=== PATIENT | female | born 1970 | race Caucasian/White ===

== ENCOUNTER 2019-07-15 16:57 | Emergency (ER) | payer OTHER, SELFPAY ==
[2019-07-15 17:10] VITALS: BP 125/72; PULSE 65; RESP 16; TEMP 37.2; O2SAT 100
--- NOTE | 2019-07-15 17:20 | ED.GENADULT ---
HPI - General Adult General Chief complaint: Urogenital-Female Stated complaint: Possible Bladder Infection Time Seen by Provider: 07/15/19 17:20 Source: patient and RN notes reviewed Mode of arrival: ambulatory Limitations: no limitations History of Present Illness HPI narrative: 49-year-old female presents with urinary complaints for the past 7 days. Dysuria consist of foul odor, burning, frequency, and urgency.? No treatment.? Denies fever or chills. No significant pelvic pain. No vaginal discharge.? No concerns for STDs. Exacerbating factors urinating.? Denies hematuria or vaginal bleeding. Denies being , LMP 06/22/19. No flank pain. Denies diarrhea, nausea, vomiting, and abdominal pain.? LBM this morning without difficulty per Adrienne. Tolerating liquids well.? Denies chest pain or dyspnea. Denies cough, rhinorrhea, congestion, sore throat. Denies recent traveling. Denies concerns for COVID-19 or exposures been home since [id number] order except for essential household needs, working, and returned home. Remains active. Some parts of this dictation were generated by voice recognition software and may contain typographical and/or grammatical inaccuracies. Related Data Allergies Allergy/AdvReac Type Severity Reaction Status Date / Time No Known Allergies Allergy Verified 03/21/19 15:40 Review of Systems Review of Systems: Narrative: CONSTITUTIONAL: Denies fever, chills, sweats. EYES: Denies visual changes, redness, discharge. ENT: Denies rhinorrhea, congestion, sore throat, otalgia. CARDIOVASCULAR: Denies chest pain, palpitations, edema. RESPIRATORY: Denies dyspnea, wheezing, cough. GASTROINTESTINAL: Denies abdominal pain, nausea, vomiting, diarrhea. GENITOURINARY: Complains of dysuria (foul odor, burning, frequency, and urgency). Denies hematuria, abnormal discharge. SKIN: Denies rash or itching. MUSCULOSKELETAL: Denies acute back pain, joint pain, or myalgia. NEUROLOGIC: Denies numbness or focal weakness. PSYCHIATRIC: Denies anxiety or depression. All systems reviewed & are unremarkable except as noted in HPI and below. [facility] Past Medical History Medical History (Updated 07/15/19 @ 17:56 by NICOLE Ch) delivery delivered Surgical History Surgical History (Updated 07/15/19 @ 17:56 by NICOLE Ch) H/O section X2 History of exploratory laparotomy for Endometriosis Family History Family History (Updated 07/15/19 @ 17:53 by NICOLE Ch) Father Diabetes mellitus Sibling Diabetes mellitus Social History Social History (Updated 07/15/19 @ 17:54 by NICOLE Ch) Smoking status: Never smoker Substance use: never Living arrangements: with family Occupation/Education: occupation Gender identity (if verbalized by the patient): Female Comments At time of signature, agree with nurse past medical, surgical, social, and family history.? There is no relevant family history pertinent to the presenting complaint. Exam Narrative: Exam Narrative: GENERAL: This is a well-nourished, well-developed patient, in no apparent distress.? Talks in full sentences and ambulates with steady gait without dyspnea. HEAD: normocephalic, atraumatic. EYES: PERRL. Sclera clear/white. Vision is grossly intact. CARDIOVASCULAR: Regular rate and rhythm without murmurs, gallops, or rubs. RESPIRATORY: Clear to auscultation. Breath sounds equal bilaterally. No wheezes, rales, or rhonchi.? GASTROINTESTINAL: Abdomen soft, no significant abdominal tenderness, nondistended. Bowel sounds are active. No hepato-splenomegaly, or palpable masses. No guarding. SKIN: warm, intact with no suspicious lesions or rash, No Purpura or Ecchymosis, good texture and turgor. NEURO: awake, alert, and oriented to person, place and time. There were no obvious focal neurologic abnormalities.? EXTREMITIES: No clubbing, cyanosis, or edema. BACK: Nontender without deformity or cr
== END 2019-07-15 17:42 | disposition home or self-care (01) ==
PROVIDERS: Emergency Provider Nurse Practitioner Family; PCP Family Medicine
DX: R30.0 Dysuria (principal)
CPT/HCPCS: 81003; 87086; 99213; G0463

== ENCOUNTER 2019-11-06 08:50 | Outpatient (CLI) | payer SELFPAY ==
[2019-11-06 10:06] LABS: Cholesterol 145 mg/dL (0-200); Glucose 79 mg/dL (65-105); HDL Direct 66 mg/dL; Triglycerides 46 mg/dL (<150)
[2019-11-06 10:17] LABS: LDL Cholesterol Direct 60 mg/dL
[2019-11-06 10:22] LABS: Hemoglobin A1C 4.8 % (<5.7)
== END 2019-11-06 08:51 | disposition home or self-care (01) ==
DX: Z02.1 Encounter for pre-employment examination (principal)
CPT/HCPCS: 36415; 80061; 82947; 83036

== ENCOUNTER 2021-01-29 19:36 | Emergency (ER) | payer BC, SELFPAY ==
[2021-01-29 19:53] VITALS: BP 155/58; PULSE 85; RESP 16; TEMP 36.7; O2SAT 100
--- NOTE | 2021-01-29 20:23 | ED.EAR ---
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 Patient states she has had a preceding history of decreased hearing acuity; she now has a 1 week history of right ear clicking associated with 1 day history of lightheadedness, worse leaning over . Along with this she said she had preceding sinus congestion, acneiform skin eruption on her right ear, . No discharge, fever, FMH menier's, true vertigo, new head ache/ migraine [she has ophthalmic migraines], no cough, loss of taste/smell, S OB . Discussed will treat broadly provide antibiotics, and allergic medications Related Data Home Medications Medication Instructions Recorded Confirmed progesterone micronized mg 01/29/21 Allergies Allergy/AdvReac Type Severity Reaction Status Date / Time No Known Allergies Allergy Verified 01/29/21 19:46 Review of Systems Review of Systems: The patient has been informed that they may have pre-hypertension or Hypertension based on a BP reading in the department. I recommend that the patient call the primary care provider listed on their discharge instructions or a physician of their choice this week to arrange follow up for further evaluation of possible pre-hypertension or Hypertension General/Constitutional: No weight loss,fever Eyes: N0: Redness,discharge Ears/Nose/Throat: No: Epistaxis,ear discharge Respiratory: Denies: Hemoptysis Gastrointestinal: No Vomiting, Bleeding-rectal Skin: No Lumps, reports possible eruption Neurologic: No Focal Weakness,Sz Hematologic: Denies: Petechiae/Purpura Psychiatric: No: Suicida ideationl All Other Systems: Reviewed and Negative [facility] Comments At time of signature, agree with nursing past medical, surgical, social and family history. There is no relevant family history pertinent to the presenting complaint Exam Narrative: General Appearance: Well appearing, No distress EYE: PERRLA, Conjunctiva clear Ears: External ear normal, TMs benign Nose: Normal nose Mouth/Throat: Normal appearing, Normal lips Neck: Supple Respiratory: Airway patent, No respiratory distress Musculoskeletal: Full ROM Skin: Warm, Dry Neurological: A&O x3, CN II-X intact Psychiatric: Normal mood, Normal affect Course Vital Signs Vital signs: Vital Signs Temperature 98.0 F 01/29/21 19:53 Pulse Rate 85 01/29/21 19:53 Respiratory Rate 16 01/29/21 19:53 Blood Pressure 155/58 H 01/29/21 19:53 Pulse Oximetry 100 01/29/21 19:53 Temperature 98.0 F 01/29/21 19:53 Pulse Rate 85 01/29/21 19:53 Respiratory Rate 16 01/29/21 19:53 Blood Pressure 155/58 H 01/29/21 19:53 Pulse Oximetry 100 01/29/21 19:53 Medical Decision Making Vital Signs Vital Signs: Vital Signs Temperature 98.0 F 01/29/21 19:53 Pulse Rate 85 01/29/21 19:53 Respiratory Rate 16 01/29/21 19:53 Blood Pressure 155/58 H 01/29/21 19:53 Pulse Oximetry 100 01/29/21 19:53 Temperature 98.0 F 01/29/21 19:53 Pulse Rate 85 01/29/21 19:53 Respiratory Rate 16 01/29/21 19:53 Blood Pressure 155/58 H 01/29/21 19:53 Pulse Oximetry 100 01/29/21 19:53 Discharge Plan Discharge Clinical Impression: Otalgia, right ear Patient Disposition: Home, Self-Care Condition: Stable Instructions: Hearing Loss (ED), Tinnitus (ED) Additional Instructions: See audiology or EENT for hearing loss, clicking ears Prescriptions: New amoxicillin-pot clavulanate [Augmentin] 500-125 mg tablet 1 tablet PO Q12H Qty: 14 RF: 0 azelastine 137 mcg (0.1 %) aerosol,spray 137 mcg NASAL Q12H Qty: 30 RF: 0 fluticasone propionate 50 mcg/actuation spray,suspension 1 spray intranasal BID PRN (Reason: nasal congestion) Qty: 16 RF: 0
== END 2021-01-29 20:30 | disposition home or self-care (01) ==
PROVIDERS: Emergency Provider Emergency Medicine; PCP Family Medicine
DX: H92.01 Otalgia, right ear (principal)
CPT/HCPCS: 99213; G0463

== ENCOUNTER → 2021-12-03 07:14 | Outpatient (CLI) | payer BC, SELFPAY ==
--- NOTE | ~2021-12-03 | MM_ITS ---
EXAMINATION: screening [facility] BI w hong HISTORY: Screening mammogram TECHNIQUE: Craniocaudal and mediolateral oblique 3-D tomosynthesis images were obtained and synthetic 2-D images were generated. CAD analysis was submitted and interpreted. COMPARISON: 02/22/2018, 08/26/2014 screening mammogram examinations BREAST PARENCHYMAL COMPOSITION: The breasts are extremely dense, which lowers the sensitivity of mamm ography. FINDINGS: Possible breast masses are suggested bilaterally. The very dense stroma may obscure masses. Bilateral diagnostic mammography and bilateral breast ultrasound examination are recommended. IMPRESSION: 1. Possible breast masses; very dense breast stroma 2. Bilateral diagnostic mammography and breast ultrasound examination are recommended BI-RADS Category 0: Incomplete: Needs additional imaging evaluation. Reviewed, dictated and finalized at location A. IMPRESSION: 1. Possible breast masses; very dense breast stroma 2. Bilateral diagnostic mammography and breast ultrasound examination are recom mended BI-RADS Category 0: Incomplete: Needs additional imaging evaluation.
== END ==
PROVIDERS: PCP Nurse Practitioner Family; Visit Provider Physician Assistant
DX: Z12.31 Encounter for screening mammogram for malignant neoplasm of breast (principal); R92.8 Other abnormal and inconclusive findings on diagnostic imaging of breast
CPT/HCPCS: 77063; 77067

== ENCOUNTER → 2022-10-18 14:11 | Outpatient (CLI) | payer BC, SELFPAY ==
--- NOTE | ~2022-10-18 | MMUS_ITS ---
EXAMINATION: MM diagnostic [facility] BI w hong, US breast RT limited HISTORY: Overdue follow-up for possible bilateral breast masses TECHNIQUE: Craniocaudal, mediolateral, and mediolateral oblique 3-D tomosynthesis images of the breas ts were performed and synthetic 2-D images were generated. CAD analysis was submitted and interpreted . High resolution limited right breast ultrasound was performed. COMPARISON: 12/23/2021, 02/22/2018, 08/26/2014 BREAST PARENCHYMAL COMPOSITION: The breasts are extremely dense, which lowers the sensitivity of mamm ography. FINDINGS: MAMMOGRAPHIC FINDINGS: Right breast: There is an approximately 2.6 cm oval, obscured, equal density mass in the anterior thi rd of the slightly lower breast near the nipple at the 6:00 location. No suspicious calcification or architectural distortion are identified. Left breast: No suspicious mass, calcification, or architectural distortion are identified. Previousl y questioned left breast masses are no longer evident. ULTRASOUND: There are multiple cysts of the lower left breast, the largest of which measures 2.2 cm and correspon ds to the mammographic finding in question. IMPRESSION: 1. No mammographic or sonographic evidence of malignancy. 2. Recommend routine screening mammography in one year. BI-RADS Category 2: Benign finding(s). Reviewed, dictated and finalized at location D. IMPRESSION: 1. No mammographic or sonographic evidence of malignancy. 2. Recommend routine screening mammography in one year. BI-RADS Category 2: Benign finding(s).
== END ==
PROVIDERS: PCP Physician Assistant; Visit Provider Physician Assistant
DX: R92.8 Other abnormal and inconclusive findings on diagnostic imaging of breast (principal)
CPT/HCPCS: 76642; 77062; 77066; G0279

== ENCOUNTER → 2022-11-21 09:47 | Outpatient (CLI) | payer BC, SELFPAY ==
--- NOTE | ~2022-11-21 | US_ITS ---
Pelvic ultrasound. Clinical History: Dysmenorrhea Technique: Realtime transabdominal and transvaginal scanning of the pelvis was performed. Color flow Doppler and Doppler spectral analysis were performed. Findings: The uterus is retroverted, and measures 7.9 x 5.6 cm. The endometrial stripe has a thickne ss of 6 mm. There are ill-defined fibroids, both subserosal and intramural. Largest fibroid measures 2.8 cm in diameter. The right ovary measures 2.9 x 1.4 x 2.6 cm. No significant right ovarian or adnexal mass is seen. The left ovary measures 2.2 x 1.6 x 2.6 cm. No significant left ovarian or adnexal mass is seen. Vascular flow present in both ovaries on Doppler spectral analysis. There is no evidence of free fluid in the cul de sac. Impression: Uterine fibroids, as above. Reviewed, dictated and finalized at [facility]. Impression: Uterine fibroids, as above.
== END ==
PROVIDERS: PCP Obstetrics & Gynecology; Visit Provider Obstetrics & Gynecology
DX: N94.6 Dysmenorrhea, unspecified (principal); D25.9 Leiomyoma of uterus, unspecified
CPT/HCPCS: 76830; 76856

== ENCOUNTER → 2023-01-14 08:23 | Outpatient (CLI) | payer BC, SELFPAY ==
--- NOTE | ~2023-01-14 | US_ITS ---
EXAMINATION: US pelvic complete w TV DATE: 01/14/2023 08:51 INDICATION: Pelvic pain Comparison: Ultrasound dated 11/21/2022 TECHNIQUE: Multiple transabdominal and endovaginal sonographic images of the pelvis performed. FINDINGS: The uterus measures 7.6 x 5.8 x 7.8 cm. There are uterine fibroids, largest measuring 2.5 c m. The endometrial complex measures 9 mm. The right ovary measures 3.8 x 1.7 x 2.1 cm and the left ovary measures 3.4 x 2.4 x 2.4 cm. There ar e small follicles in each ovary. Normal doppler signal in both ovaries. There is no free fluid in the pelvis. There are no abnormal masses seen on either side. IMPRESSION: 1. Uterine fibroids, largest measuring 2.5 cm. Reviewed, dictated and finalized at location A.
== END ==
PROVIDERS: PCP Obstetrics & Gynecology; Visit Provider Obstetrics & Gynecology
DX: D25.9 Leiomyoma of uterus, unspecified (principal)
CPT/HCPCS: 76830; 76856

== ENCOUNTER 2023-02-09 02:30 | Emergency (ER) | payer BC, SELFPAY ==
--- NOTE | ~2023-02-09 | CT_ITS ---
CT of the Abdomen and Pelvis: Indication: Abdominal pain Technique: 2.5 mm axial scans were obtained through the abdomen and pelvis following intravenous adm inistration of 100 cc of Omnipaque 350. Dose reduction technique was used on this scan by utilizing a utomated exposure control and iterative reconstruction technique. The dose-length product (DLP) was 3 28.48 mGy-cm. Findings: Scans through the lung bases are unremarkable. The liver, spleen, pancreas, adrenals and kidneys are within normal limits. Small calcified gallstone s are present. No evidence of aortic aneurysm. No lymphadenopathy. No bowel obstruction or bowel wall thickening. There is no evidence to suggest acute appendicitis. Images through the pelvis were performed. Urinary bladder unremarkable. There is a prominent, somewha t heterogeneous appearance of the cervix. No ascites. Impression: Prominent, heterogeneous appearance of the cervix. Correlate with gynecologic physical exam/cervical examination. Cholelithiasis. Reviewed, dictated and finalized at [facility]. 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 Correlate with gynecologic p hysical exam/cervical examination. Cholelithiasis.
[2023-02-09 02:39] VITALS: BP 126/77; PULSE 70; RESP 18; TEMP 36.7; O2SAT 100
--- NOTE | 2023-02-09 03:16 | ECG_ITS ---
Measurements Intervals [place] Rate: 65 P: 52 OK: 161 QRS: 24 QRSD: 118 T: 42 QT: 415 QTc: 432 Interpretive Statements SINUS RHYTHM INCOMPLETE RIGHT BUNDLE BRANCH BLOCK BORDERLINE ECG NO PREVIOUS ECG AVAILABLE FOR COMPARISON Electronically Signed On 02-09-2023 7:06:34 HEMP FIBER TAKER OFF by Nixon Haynes D.O.
[2023-02-09] MEDS: SODIUM CHLORIDE 0.9% IV 2,000 ML 999 ML IV CONT (03:28)
[2023-02-09] MEDS: KETOROLAC 15 MG/ML VIAL (*BKC) IV PUSH (03:29)
[2023-02-09] MEDS: HYDROmorphone HCL INJ (*CRX) 1 MG/ML SYR 0.5 MG IV PUSH (03:30)
[2023-02-09 03:34] LABS: Potassium 3.8 mmol/L (3.4-5.0)
[2023-02-09 03:38] LABS: Glucose Point of Care 94 mg/dl (65-105)
[2023-02-09 03:39] LABS: Alanine Aminotransferase 22 U/L (6-35); Albumin Level 4.4 g/dL (3.5-5.1); Alkaline Phosphatase 63 U/L (38-126); Anion Gap 11 mmol/L (8-16); Aspartate Amino Transferase 27 U/L (14-36); Bilirubin,Total 0.4 mg/dL (0.2-1.3); Blood Urea Nitrogen 13 mg/dL (7-17); Carbon Dioxide 23 mmol/L (22-30); Chloride 107 mmol/L (98-107); Estimated CRCL calculation 64 ml/min; Estimated Glomerular Filt Rate > 60; Glucose 93 mg/dL (65-110); Lipase 90 U/L (23-300); Sodium 141 mmol/L (137-145)
[2023-02-09 03:40] LABS: Basophils Absolute Auto 0.1 K/mm3 (0.0-0.1); Eosinophils Absolute Auto 0.2 K/mm3 (0-0.3); Hematocrit 35.5 % (37.0-47.0); Hemoglobin 11.2 g/dL (12.0-15.0); Immature Granulocyte Absolute 0.01 K/mm3 (0.00-0.031); Immature Granulocyte Percent A 0.1 % (0-0.5); Lymphocytes Percent Auto 46.5 % (18.3-44.2); Mean Corpuscular HGB Conc 31.5 g/dl (32-36); Mean Corpuscular Hemoglobin 27.7 pg (26-34); Mean Corpuscular Volume 87.7 fl (80-100); Mean Platelet Volume 12.3 fl (7.4-10.4); Monocytes Absolute Auto 0.9 K/mm3 (0.1-0.6); Neutrophils Absolute Auto 2.7 K/mm3 (1.3-6.7); Neutrophils Percent Auto 37.4 % (45.5-73.1); Platelet Count Result 354 k/mm3 (150-375); Red Blood Count 4.05 M/mm3 (4.2-5.4); Red Cell Distribution Width 14.3 % (11.5-14.5); White Blood Count 7.1 K/mm3 (4.5-10.0)
--- NOTE | 2023-02-09 03:44 | ED.GENADULT ---
HPI - General Adult General Chief complaint: Abdominal Pain Stated complaint: Abd pain Time Seen by Provider: 02/09/23 02:39 History of Present Illness HPI narrative: This is a 53-year-old female presenting ED with chief complaint of abdominal pain. Patient said that the pain started in November and the right side of her abdomen. She has a history of endometriosis so she saw her OBGYN multiple times does not believe that is due to endometriosis. She had been ordered a right upper quadrant ultrasound and a CT abdomen pelvis on an outpatient basis for this Monday, however she woke up this morning with worsening pain and became anxious and came to the emergency department for evaluation. The pain has been worse over the last week and was acutely worse tonight. It is a sharp achy pain on the right side of her belly is nonradiating 8 out 10 intensity and getting worse. She has been taking Tylenol with some relief. She notes no relation to food. No nausea vomiting or diarrhea. It is not related to her menstrual cycle Related Data Home Medications Medication Instructions Recorded Confirmed progesterone micronized 200 mg mg 01/29/21 02/22/21 capsule Allergies Allergy/AdvReac Type Severity Reaction Status Date / Time morphine Allergy Intermediate Itching Verified 02/09/23 02:39 [From Duramorph (PF)] PMFSH Past Medical History Medical History Anxiety delivery delivered Endometriosis Surgical History Surgical History H/O section X2 History of exploratory laparotomy for Endometriosis Family History Family History Father Diabetes mellitus Sibling Diabetes mellitus Depression Grandparent Malignant neoplasm of prostate Diabetes mellitus Heart disease Thyroid disorder Father Diabetes mellitus Sibling Diabetes mellitus Social History Social History Smoking status: Never smoker Alcohol intake: current Substance use: never Substance use type: does not use Living arrangements: with family Occupation/Education: occupation Gender identity (if verbalized by the patient): Female Exam Narrative: APPEARANCE: No apparent distress. Head: atraumatic. EYES: EOMI, NOSE: Atraumatic NECK: Trachea midline RESPIRATORY: No increased rate of breathing CARDIOVASCULAR: RRR, ABDOMINAL: Tenderness to palpation in the right upper quadrant, is the abdomen is soft nontender no guarding or rebound. MUSCULOSKELETAl: No obvious deformities NEURO: Alert. Moving 4/4 extremities SKIN:: Warm, dry. Normal color PSYCHIATRIC: Normal affect Point of care right upper quadrant ultrasound showed gallstones and positive sonographic Kramer's but no pericholecystic fluid or gallbladder wall thickening. Course Vital Signs Vital signs: Vital Signs Temperature 98.1 F 02/09/23 02:39 Pulse Rate 70 02/09/23 02:39 Respiratory Rate 18 02/09/23 02:39 Blood Pressure 126/77 02/09/23 02:39 Pulse Oximetry 100 02/09/23 02:39 Oxygen Delivery Room Air 02/09/23 02:39 Temperature 98.1 F 02/09/23 02:39 Pulse Rate 70 02/09/23 02:39 Respiratory Rate 18 02/09/23 02:39 Blood Pressure 126/77 02/09/23 02:39 Pulse Oximetry 100 02/09/23 02:39 Oxygen Delivery Room Air 02/09/23 02:39 Medical Decision Making [facility] Narrative Medical decision making narrative: -Course: 53-year-old female presenting with right-sided abdominal pain times several months. Workup showed cholelithiasis without evidence of cholecystitis. No other acute findings. patient will be discharged with surgery follow-up. I explained to patient that although we found gallstones today but that is not the definitive diagnosis for her ongoing abdominal pain. I recommend she continu
[2023-02-09 04:41] LABS: Appearance Urine Clear (Clear); Bilirubin Urine Negative (Negative); Blood Urine Negative (Negative); Color Urine Yellow (Yellow); Glucose Urine UA Negative (Negative); Ketones Urine Negative (Negative); Leukocyte Esterase Ur Negative LEU/UL (Negative); Nitrate Urine Negative (Negative); Protein Urine Negative (Negative); Specific Grav Ur 1.003 (1.001-1.035); Urobilinogen Urine 0.2 mg/dL (<2.0); pH Urine 7.5 (5.0-9.0)
[2023-02-09 04:43] VITALS: BP 128/70; PULSE 69; RESP 15; O2SAT 100
[2023-02-09 04:50] LABS: Add Urine Microscopic? NO
[2023-02-09 05:01] VITALS: BP 118/69; PULSE 65; RESP 15; O2SAT 100
[2023-02-09 05:50] VITALS: BP 132/79; PULSE 71; RESP 20; O2SAT 100
[2023-02-09 06:01] VITALS: BP 123/80; PULSE 64; RESP 12; O2SAT 100
== END 2023-02-09 06:16 | disposition home or self-care (01) ==
PROVIDERS: Emergency Provider Emergency Medicine; PCP Physician Assistant
DX: K80.20 Calculus of gallbladder without cholecystitis without obstruction (principal); N80.9 Endometriosis, unspecified; I45.10 Unspecified right bundle-branch block
CPT/HCPCS: 36415; 74177; 80053; 81003; 82948; 83690; 85025; 93005; 96361; 96374; 96375; 99284; J1170; J1885; J7030; Q9967

== ENCOUNTER → 2023-02-10 08:08 | Outpatient (CLI) | payer BC, SELFPAY ==
--- NOTE | ~2023-02-10 | US_ITS ---
Limited Abdominal Sonogram: Real-time sonographic imaging of the right upper quadrant was performed. Clinical History: Abdominal pain Findings: The liver appears normal with no evidence of mass lesion or bile duct dilatation. Main por maria fernanda vein demonstrates normal direction of flow. The gallbladder is well distended, and contains small echogenic gallstone. There is also a nonmobile echogenic gallbladder wall polyp measuring 6 mm. The common bile duct measures 4 mm. The visualized pancreas, aorta, and IVC are unremarkable. Right kidn ey measures 9.9 cm in length, without hydronephrosis. Impression: Small gallstones. Additional 6 mm probable gallbladder wall polyp. Reviewed, dictated and finalized at location . 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 Additional 6 mm probable gallbladder wall polyp.
== END ==
PROVIDERS: PCP Physician Assistant; Visit Provider Obstetrics & Gynecology
DX: K80.20 Calculus of gallbladder without cholecystitis without obstruction (principal); R10.2 Pelvic and perineal pain
CPT/HCPCS: 76705

== ENCOUNTER 2023-03-08 09:26 | Outpatient (CLI) | payer BC, SELFPAY ==
--- NOTE | ~2023-03-08 | NM_ITS ---
EXAMINATION: NM hepatobiliary wo pharm DATE: 03/08/2023 12:05 INDICATION: Right lower quadrant abdominal pain. COMPARISON: CT abdomen and pelvis 02/09/2023 TECHNIQUE: 4.9 mCi Tc-99m mebrofenin (Choletec) was administered intravenously. Scintigraphic images of the abdomen were obtained for one hour. Then, the patient drank 8 oz Ensure, and imaging was cont inued for 60 minutes. FINDINGS: There is normal clearance of radiotracer from the blood pool. There is homogeneous tracer u ptake by the liver. Activity progresses to the bowel and gallbladder. Gallbladder ejection fraction (GBEF) was 8%. Note that with this technique, normal GBEF >= 33%. IMPRESSION: 1. Low gallbladder ejection fraction, consistent with gallbladder dysfunction and/or chronic cholecy stitis. Reviewed, dictated and finalized at location A. ERN KEEPER IMPRESSION: 1. Low gallbladder ejection fraction, consistent with gallbladder dysfunction and/or chronic cholecystitis.
== END 2023-03-08 09:27 | disposition home or self-care (01) ==
PROVIDERS: PCP Physician Assistant; Visit Provider Surgery
DX: K80.20 Calculus of gallbladder without cholecystitis without obstruction (principal)
CPT/HCPCS: 78226; A9537

== ENCOUNTER → 2023-03-21 11:00 | Outpatient (CLI) | payer BC, SELFPAY ==
--- NOTE | ~2023-03-21 | DEXA_ITS ---
Bone Density Report Name: SELAM CLARKE Age: 53 Sex: Female Ethnicity: White Date of : 1970 Indication: screening for osteoporosis; height loss; Referring Provider: IRISH, LUBA Study: Bone densitometry was performed. Exam Date: March 21, 2023 Accession number: [id number] Bone Density: Region BMD T-score Z-score Classification AP Spine (L1-L4) 1.070 0.2 1.1 Normal Femoral Neck (Left) 0.866 0.2 1.0 Normal Total Hip (Left) 1.051 0.9 1.4 Normal Femoral Neck (Right) 0.847 0.0 0.9 Normal Total Hip (Right) 1.033 0.7 1.3 Normal Total Hip Mean 1.042 0.8 1.4 Normal World Health Organization criteria for BMD impression classify patients as: Normal (T-score at or above -1.0), Osteopenia (T-score between -1.0 and -2.5), or Osteoporosis (T-score at or below -2.5). 10-year Fracture Risk: FRAX not reported because: Premenopausal woman All T-scores for Spine Total, Hip Total, Femoral Neck at or above -1.0 Clinical Information Provided by Patient: Has used the following medications: HRT (i.e. estrogen/hormone therapy), Vitamin D, Calcium Patient maximum height was 66 No regular weight bearing exercise Drinks caffeinated beverages Onset of menses at age 14 Premenopausal Number of children 2 Impression: The patient's bone mass is within expected range for age, gender and ethnicity. Discussion: BONE DENSITY IS WITHIN EXPECTED LIMITS FOR AGE, SEX AND RACE. Bone density is within expected limits for age, sex and race at all sites measured. The patient should follow a healthful lifestyle (good nutrition with adequate calcium and vitamin D, and appropriate weight-bearing exercise). Follow-Up: Consider repeating this study in 5 years or sooner if there is some new clinical indication. Reported by: NOA on 03/21/2023 11:25:00 AM. Reviewed, dictated and finalized at location AManpreet SANTIAGO
== END ==
PROVIDERS: PCP Physician Assistant; Visit Provider Physician Assistant
DX: Z13.820 Encounter for screening for osteoporosis (principal); Z82.62 Family history of osteoporosis
CPT/HCPCS: 77080

== ENCOUNTER 2023-03-21 17:06 | Outpatient (CLI) | payer SELFPAY ==
[2023-03-21 17:42] LABS: Alanine Aminotransferase 13 U/L (6-35); Albumin Level 4.5 g/dL (3.5-5.1); Alkaline Phosphatase 66 U/L (38-126); Amylase 118 U/L (30-110); Aspartate Amino Transferase 25 U/L (14-36); Bilirubin,Total 0.3 mg/dL (0.2-1.3); Lipase 76 U/L (23-300)
== END 2023-03-21 17:07 | disposition home or self-care (01) ==
PROVIDERS: PCP Physician Assistant; Visit Provider Surgery
DX: Z01.818 Encounter for other preprocedural examination (principal); K80.10 Calculus of gallbladder with chronic cholecystitis without obstruction
CPT/HCPCS: 36415; 80076; 82150; 83690; 86850; 86900; 86901

== ENCOUNTER 2023-03-30 01:05 | Day surgery (SDC) | payer BC, SELFPAY ==
[2023-03-16 13:47] VITALS: BMI 23.3
--- NOTE | 2023-03-16 13:52 | PC.NURSE ---
Report to the Outpatient Waiting Room, entrance under the green pavilion located off [facility], at time 10:00 on date 03/30/23. Planned Procedure Time: 12:00. Time changes happen often and if your time is changed the preop area will call you the afternoon before. - You and your visitor will be asked to self-screen and do not enter if you have any COVID symptoms. - A mask is optional within the hospital at this time. Patients may have clear liquids (water, carbonated beverages, clear teas, apple juice) until 3 hours prior to surgery (9:00) with a maximum of 20 ounces. - No food from midnight until time of surgery Take the following medications with a SIP of water the morning of surgery: BUSPIRONE DO NOT STOP ANY OF YOUR OTHER PRESCRIPTION MEDICATIONS PRIOR TO SURGERY ?EXCEPT THE FOLLOWING Medications to discontinue per physician: VITAMINS/SUPPLEMENTS Date to take last dose: 03/26/23 Please no make-up, nail tongan, hairspray, perfume, deodorant, or body powder the day of surgery. No jewelry (including any body piercings) or valuables the day of surgery, leave them at home. Please take a shower or bath the night before, or the morning of, surgery with an antibacterial soap. Wear comfortable, loose fitting clothing. - Jewelry must be removed prior to entering the operating room. Rings and piercings that are not removed may be cut off. - The hospital will not accept responsibility for valuables. - Please leave all valuables, including medications, at home the day of surgery. If you are going home after surgery, a licensed independent driver must drive you home. - NO public transportation without another adult if you receive anesthesia. - We recommend that an adult stay with you for 24 hours following discharge. - We also recommend that you do not drive, make important decision, drink alcoholic beverages, or take any drugs that were not prescribed by your health care provider for at least 24 hours after your discharge time. Follow any additional instructions given to you from your surgeon. If you or anyone in your household have experienced Covid symptoms in the past week, please notify your surgeon or the nurse liaison at the phone number below for possible testing. Telephone instructions given to PT - SELAM CLARKE and asked if any additional questions and then verbalized understanding. Patient advised to call surgeon office or pre surgery nurse liaison [phone] if any additional questions.
[2023-03-30] VITALS (10 sets, daily range): BP systolic 96–130; BP diastolic 48–76; PULSE 64–81; RESP 14–18; TEMP 36.2–36.6; O2SAT 96–100
[2023-03-30] MEDS: ACETAMINOPHEN 500 MG TABLET 1000 MG PO (11:05)
[2023-03-30] MEDS: KETOROLAC 15 MG/ML VIAL (*BKC) IV PUSH (11:05)
[2023-03-30] MEDS: LACTATED RINGERS 1,000 ML 30 ML IV CONT ×2 (11:05→14:23)
--- NOTE | 2023-03-30 11:06 | P.PNAN_ITS ---
Anes - Initial Pre Proc Eval Procedure: Operation Date: 03/30/23 12:00 Proposed Procedures p Laparoscopic Cholecystectomy - Toi Abarca MD Date/Time: 03/30/23 11:06 Surgeon: Toi Abarca MD Pre Op Diagnosis: Chronic Cholecystitis with Calculous Patient Data Age: 53 Gender: F Height: 1.65 m Weight: 63.5 kg Allergies Allergy/AdvReac Type Severity Reaction Status Date / Time morphine Allergy Intermediate Itching Verified 03/16/23 13:45 [From Duramorph (PF)] christine Allergy Anaphylaxis Verified 03/16/23 13:46 Home Medications Medication Instructions Recorded Confirmed Type progesterone micronized 200 mg 200 mg PO HS 01/29/21 03/16/23 History capsule buspirone 15 mg tablet 15 mg PO BID 02/14/23 03/16/23 History cetirizine 10 mg capsule (Zyrtec) 10 mg PO DAILY PRN Allergy Symptoms 02/14/23 03/16/23 History cholecalciferol (vitamin D3) 50 50 mcg PO DAILY 02/14/23 03/16/23 History mcg (2,000 unit) capsule omega 4-noe-anc-fish oil 60 mg-90 1 cap PO DAILY 02/14/23 03/16/23 History mg-500 mg capsule calcium carbonate 600 mg calcium 600 mg PO DAILY 03/16/23 03/16/23 History (1,500 mg) tablet (Calcium) Patient hx anesthesia problems: none Family hx anesthesia problems: none Results Review: All pre-operative results and documents have been reviewed as part of the pre- operative evaluation. [facility] Past Medical History Medical History Anxiety delivery delivered Endometriosis Surgical History Surgical History H/O section X2 History of exploratory laparotomy for Endometriosis Family History Family History Father Diabetes mellitus Sibling Diabetes mellitus Depression Grandparent Malignant neoplasm of prostate Diabetes mellitus Heart disease Thyroid disorder Father Diabetes mellitus Sibling Diabetes mellitus Social History Social History Smoking status: Never smoker Alcohol intake: current Drinks per week: 2 Substance use: never Substance use type: does not use Living arrangements: with family Occupation/Education: occupation Gender identity (if verbalized by the patient): Female Spiritual care concerns: No Anes - Eval Final PreProcedure Day of Procedure 03/30/23 11:06 Patient weight: normal Heart: regular rate and rhythm Lungs: clear to auscultation Airway: Mallampati scale class II Neurological: alert and oriented Last oral intake: >/= 8 hours ASA classification: II Emergent: no Anesthetic plan: proceed Anesthesia type and monitoring: general ETT and standard monitoring Results Review: All pre-operative results and documents have been reviewed as part of the pre- operative evaluation. Informed Consent: The patient's anesthetic plan and its attendant risks and benefits were discussed with the patient/family/POA. Questions were solicited and answers provided to the satisfaction of the patient/family/POA.
--- NOTE | 2023-03-30 11:40 | WPDHPUPDATE1 ---
History and Physical Update Update Date/Time: 03/30/23 11:40 History and Physical has been reviewed, including an updated exam of the patient. There are NO changes in the patient's condition. Risks, benefits, and alternatives have been discussed and questions answered. Patient agrees to proceed with procedure.
[2023-03-30] MEDS: ceFAZolin 2 GM/D5W 50 ML 2 GM/50 ML BAG IVPB (12:37)
[2023-03-30] MEDS: BUPIVACAINE/EPINEPHRINE 0.5% 30 ML VIAL INFILTRATE (13:12)
--- NOTE | 2023-03-30 14:06 | W.PM.PROC2 ---
Procedure Note - Detailed Date of Procedure 03/30/23 Pre-op Diagnosis Chronic Cholecystitis with Calculous dysmenorrhea suspected endometriosis Post-op Diagnosis Same Procedure Performed peritoneal biopsy fulguration of endometriosis Surgeon Emerson Gallardo MD Anesthesia General Indications 53-year-old female with a history of pelvic/abdominal pain. Patient states she has dysmenorrhea worsening pelvic pain surrounding her menses. patient had a right upper quadrant ultrasound which showed gallstones and possible gallbladder wall polyp. Patient underwent laparoscopic cholecystectomy with Dr. Abarca. Upon abdominal/ pelvic survey, dark and gunpowder lesions suspected to be endometrial implants were noted. Dense adhesive disease was noted along the right fallopian tube and right ovary. Adhesive disease had caused hydrosalpinx and scar tissue. The right adnexa was the most prominent area of endometrial implants. Endometrial implants were also noted in the posterior and anterior cul-de-sac. Intraoperative consult was placed by Dr. Abarca to evaluate endometriosis. Findings Stage III endometriosis Dense adhesive/ scarring of the right fallopian tube and ovary Right hydrosalpinx Description of Procedure upon entry to the room, patient was in supine position and positioned for laparoscopic cholecystectomy. Pelvic survey was performed and noted the above findings. Based on the advanced stage of endometriosis, the patient's age, adhesives/scar tissue disease in the right adnexa, recommended peritoneal biopsy to confirm the presence of endometriosis. Peritoneal biopsies were obtained from the anterior cul-de-sac and peritoneal wall as well as the right adnexa near the fimbriae a of the right fallopian tube. The areas of punch biopsy were made hemostatic with needle cautery good hemostasis was noted. At this time, further fulguration of endometriosis and biopsy was not deemed necessary. Would recommend total hysterectomy for management of endometrial disease. Please refer to Dr. Marcus note for full dictation of his portion of the procedure. Estimated Blood Loss 5 Drains No Packing No Pathology Yes ( Peritoneal biopsies, endometriosis implants) Complications No immediate complications Condition Stable Disposition PACU [facility] Billing Surgery - Charge Forward: Surgery Billing
--- NOTE | 2023-03-30 14:23 | W.PM.PROC2 ---
Procedure Note - Detailed Date of Procedure 03/30/23 Pre-op Diagnosis Chronic Cholecystitis with Calculous, gallbladder polyp Post-op Diagnosis Other (Cholelithiasis with chronic cholecystitis, gallbladder polyp, endometriosis with right hydrosalpinx) Procedure Performed Laparoscopic cholecystectomy, pelvic laparoscopy Surgeon Toi Abarca MD Tools Administrator Gildardo SILVERIO Anesthesia General and Local Indications Patient presented 1st to my office after going to the emergency room in mid January with onset right lower quadrant abdominal pain that would radiate through to her back. The pain typically is not related to food but occurs near the onset of her menstrual cycle. She had an ultrasound which showed gallstones and a 6 mm gallbladder polyp. I initially thought that this was endometriosis not gallbladder disease. Because she did have the polyp and gallstones, I did order and an hepatobiliary scan. This was markedly abnormal with a low gallbladder ejection fraction of only 8%. Patient has seen her real estate portfolio manager who is not on staff here. She had seen him a few times and he had requested that we do look in her pelvis at the time of the cholecystectomy and take pictures. She is taken to surgery today for laparoscopic cholecystectomy for chronic cholecystitis with gallstones and gallbladder polyp. Findings Mild gallbladder inflammation was noted. It was more severe in the area the cystic duct and cystic artery. There was no real thickening of the gallbladder wall. There was minimal edema. No liver abnormalities or biliary ductal dilatation were noted. On doing pelvic laparoscopy, I did notice several implants of endometriosis as well as a right hydrosalpinx. It appeared she had a uterine fibroid as well with more endometriosis on the back of the uterus. I called Dr. Gallardo to the operating room to perform laparoscopy and give his opinion. He did biopsy 1 of the implants and with the extensive findings noted above, feels that the patient really will need a hysterectomy to control her abdominal pain. He dictated a separate operative note and please refer to that. Description of Procedure Patient was taken to surgery and induced into general anesthesia. The abdomen is prepped and draped. Trocars were placed in the usual fashion using a varies needle and applied [employer] 5 mm trocar for the initial placement. Once the other trocars were placed in their normal position, the patient was placed in reverse Trendelenburg. The gallbladder was decompressed with a laparoscopic aspirator. The cholecystotomy was closed with a Vicryl endoloop. The gallbladder was retracted anterosuperiorly. Dissection was carried out in the cholecystohepatic triangle. The cystic duct and cystic artery were carefully dissected. The gallbladder was dissected off the liver at its lower half. Critical view was achieved. I then securely clipped and divided the cystic duct and cystic artery. The gallbladder was dissected free of its remaining attachments to the liver and peritoneal attachments to the liver. Eventually it was completely freed from the liver. It was placed in an Endo-Catch bag and retrieved through the 10 11 epigastric trocar site. We then replaced the 10 11 epigastric trocar and reviewed the right upper quadrant and gallbladder fossa. All looked good with no evidence of bleeding or bile leakage. We then placed the patient in reverse Trendelenburg. The camera was turned towards the pelvis and I went to the patient's right side. I retracted the cecum and most of the sigmoid colon so that the pelvis could be seen. There were several areas of endometriosis and a very dilated right fallopian tube probably from endometriosis and stricture. Multiple pictures were taken. I called Dr. Gallardo to the room. He noticed the laparoscopic findings and then scrubbed in. Please review his operative report for that description. Once he was done with the pelvic laparoscopy
[2023-03-30] MEDS: fentaNYL CITRATE INJ (*CRX) 100 MCG/2 ML VIAL 25 MCG IV PUSH ×3 (14:58→15:08)
[2023-03-30] MEDS: oxyCODONE HCL (*CRX) 5 MG TAB IR PO (16:15)
== END 2023-03-30 17:14 | disposition home or self-care (01) ==
PROVIDERS: Student in an Organized Health Care Education/Training Program; PCP Physician Assistant; Visit Provider Surgery
PROC: 0FT44ZZ Resection of Gallbladder, Percutaneous Endoscopic Approach (ICD-10-PCS; CPT 47562; principal; 2023-03-30 12:00)
PROC: (CPT 49320; 2023-03-30 12:00)
DX: K80.10 Calculus of gallbladder with chronic cholecystitis without obstruction (principal); K66.8 Other specified disorders of peritoneum; N73.6 Female pelvic peritoneal adhesions (postinfective); F41.9 Anxiety disorder, unspecified; Z79.82 Long term (current) use of aspirin; Z98.890 Other specified postprocedural states; Z80.42 Family history of malignant neoplasm of prostate
CPT/HCPCS: 47562; 49321; 88304; 88305; A9270; C1713; J0690; J1100; J1170; J1885; J2250; J2371; J2405; J2704; J3010; J7120

== ENCOUNTER 2023-08-29 13:49 | Outpatient (CLI) | payer BC, SELFPAY ==
--- NOTE | ~2023-08-29 | XR_ITS ---
EXAM: XR lumbar spine 2-3V DATE: 08/29/2023 14:16 HISTORY: Back Pain/strain, RT SIDE PAIN X3 DAYS . COMPARISON: CT abdomen pelvis 02/09/2023. FINDINGS: 5 nonrib-bearing lumbar-type vertebral bodies. Pedicles intact. Normal vertebral body alig nment. Vertebral body heights preserved. Mild degenerative disc disease at L4-5. Normal facets and po sterior elements. No fracture or dislocation. IMPRESSION: No acute fracture or traumatic malalignment detected in the lumbar spine. Reviewed, dictated and finalized at location K.
== END 2023-08-29 13:50 | disposition home or self-care (01) ==
PROVIDERS: PCP Physician Assistant; Visit Provider Physician Assistant
DX: M54.50 Low back pain, unspecified (principal)
CPT/HCPCS: 72100

== ENCOUNTER 2024-02-01 17:19 | Outpatient (CLI) | payer BC, SELFPAY ==
--- NOTE | ~2024-02-01 | XR_ITS ---
AP and lateral views of the left hip Clinical history: Pain Findings: No acute fracture or dislocation is seen. Osseous alignment is anatomic. Left hip joint is intact. Soft tissues are unremarkable. Impression: No significant abnormality is seen. Reviewed, dictated and finalized at location M. URE PRESS OPERATOR Impression: No significant abnormality is seen.
== END 2024-02-01 17:20 | disposition home or self-care (01) ==
PROVIDERS: PCP Physician Assistant; Visit Provider Physician Assistant
DX: M25.552 Pain in left hip (principal)
CPT/HCPCS: 73502

== ENCOUNTER 2024-03-02 12:35 | Outpatient (CLI) | payer BC, SELFPAY ==
--- NOTE | ~2024-03-02 | CT_ITS ---
EXAMINATION: CT abdomen pelvis wo con DATE: 03/02/2024 12:57 INDICATION: Right flank pain. TECHNIQUE: Computed tomography (CT) of the abdomen and pelvis was performed without intravenous contr ast. Automated exposure control and iterative reconstruction technique were employed. The dose-length product was 188.73 mGy-cm. COMPARISON: CT abdomen and pelvis 02/09/2023 FINDINGS: The visualized portions of the lung bases are clear without pneumonia or pleural effusion. The heart size is normal. No pericardial effusion. There are cysts in the liver measuring up to 9 mm. There are changes of cholecystectomy. The spleen, pancreas, adrenal glands, and kidneys are normal. There is no urolithiasis. There are no dilated loops of bowel. The appendix is normal. There are no p athologically enlarged lymph nodes. There is no free intraperitoneal fluid. There is mild thoracic an d lumbar spondylosis. IMPRESSION: 1. No urolithiasis. Reviewed, dictated and finalized at location A. PHONE ASSEMBLER IMPRESSION: 1. No urolithiasis.
== END 2024-03-02 12:36 | disposition home or self-care (01) ==
PROVIDERS: PCP Physician Assistant; Visit Provider Physician Assistant
DX: R10.9 Unspecified abdominal pain (principal)
CPT/HCPCS: 74176

== ENCOUNTER 2024-05-24 11:34 | Outpatient (CLI) | payer BC, SELFPAY | END 2024-05-24 11:35 | disposition home or self-care (01) | LOC: MICIMG 11:35 | PROVIDERS: PCP Physician Assistant; Visit Provider Physician Assistant | DX: Z12.31 Encounter for screening mammogram for malignant neoplasm of breast (principal) | CPT/HCPCS: 77063; 77067 ==